=== PATIENT | female | born 1950 | race Caucasian/White ===

== ENCOUNTER → 2022-03-09 12:40 | Outpatient (CLI) | payer MEDICARE, OTHER, SELFPAY ==
--- NOTE | ~2022-03-09 | MR_ITS ---
EXAMINATION: MR knee LT wo con DATE: 03/09/2022 13:36 INDICATION: Chronic left knee pain TECHNIQUE: Magnetic resonance imaging (MRI) of the left knee was performed without intravenous contra st. Sequences included coronal PD-weighted FSE, coronal PD-weighted FS FSE, sagittal T2-weighted FSE , sagittal PD-weighted FS FSE and axial PD weighted fat saturated FSE. COMPARISON: None. FINDINGS: Medial compartment: Medial meniscus is normal. Extensive partial thickness cartilage loss with scattered chondral surface regularity along the weightbearing medial femoral condyle. Small region of underlying cortical irreg ularity at the lateral aspect of the anterior weightbearing medial femoral condyle. Lateral compartment: Lateral meniscus is normal. Partial-thickness cartilage loss without degenerative subchondral changes along the posterior weightbearing lateral femoral condyle. Patellofemoral compartment: Diffuse partial thickness cartilage loss throughout the patellofemoral compartment most prominent wit h chondral surface regularity at the superolateral aspect of the lateral trochlea, superomedial aspec t of the medial trochlea as well as at the medial patellar facet. Ligaments and tendons: Anterior and posterior cruciate ligaments are normal. The medial collateral ligament and fibular lucia ateral ligament complex are normal. The extensor mechanism is normal. The visualized medial and later al hamstring tendons as well as the iliotibial band are normal. Fluid: Very small knee joint effusion at the suprapatellar pouch. No loose osteochondral bodies identified. Tiny Dejesus's cyst. Osseous/other: Normal marrow signal. No fracture or abnormal marrow replacing process. IMPRESSION: 1. Mild tricompartmental osteoarthritis at the left knee. Reviewed, dictated and finalized at location B.
== END ==
PROVIDERS: PCP Orthopaedic Surgery; Visit Provider Orthopaedic Surgery
DX: M17.12 Unilateral primary osteoarthritis, left knee (principal); G89.29 Other chronic pain; M25.462 Effusion, left knee
CPT/HCPCS: 73721